=== PATIENT | female | born 1995 | race Caucasian/White ===

== ENCOUNTER 2017-04-17 09:02 | Emergency (ER) | payer SELFPAY ==
[2017-04-17 09:20] VITALS: TEMP 98
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
[2017-04-17 11:14] VITALS: BP 148/85; O2SAT 99
== END 2017-04-17 11:14 | disposition home or self-care (01) ==
LOC: ER 09:02
DX: J11.1 Influenza due to unidentified influenza virus with other respiratory manifestations (principal); I10 Essential (primary) hypertension; E07.9 Disorder of thyroid, unspecified; Z87.891 Personal history of nicotine dependence

== ENCOUNTER 2017-07-09 04:15 | Emergency (ER) | payer SELFPAY | END 2017-07-09 04:36 | disposition home or self-care (01) | LOC: ER 04:15 | DX: Z53.21 Procedure and treatment not carried out due to patient leaving prior to being seen by health care provider (principal) ==

== ENCOUNTER 2017-07-09 04:44 | Emergency (ER) | payer OTHER ==
[2017-07-09 05:24] VITALS: TEMP 98.8
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
[2017-07-09] MEDS ORDERED: POTASSIUM CHLORIDE ELIXIR 20 MEQ/15 ML UD PO ONE (06:07)
[2017-07-09] MEDS ORDERED: diazePAM 2 MG TAB PO ONE (06:43)
[2017-07-09] MEDS ORDERED: IBUPROFEN 200 MG TAB PO ONE (06:43)
[2017-07-09 07:35] VITALS: BP 140/77; O2SAT 97
== END 2017-07-09 07:20 ==
LOC: ER 04:44
DX: N30.01 Acute cystitis with hematuria (principal); E87.6 Hypokalemia; F19.920 Other psychoactive substance use, unspecified with intoxication, uncomplicated; I10 Essential (primary) hypertension; E07.9 Disorder of thyroid, unspecified; Z87.891 Personal history of nicotine dependence